=== PATIENT | female | born 1955 | race Caucasian/White ===

== ENCOUNTER → 2016-10-30 | Outpatient (CLI) | payer BC ==
--- OUTSIDE RECORDS SUMMARY | 2016-10-30 09:29 | XMS REPORT ---
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 Name Role Phone NANCY BANEGAS CP Unavailable Allergies No Known Allergies Problems Problem Type Condition Code Onset Dates Condition Status Problem Dysthymia F34.1 Active Assessment Bereavement, uncomplicated Z63.4 Active Problem Hyperlipidemia, unspecified hyperlipidemia type E78.5 Active Problem Morbid obesity due to excess calories E66.01 Active Problem Bereavement, uncomplicated Z63.4 Active Problem Type II diabetes mellitus E11.9 Active Problem Benign essential hypertension I10 Active Problem Allergic rhinitis, unspecified allergic rhinitis type J30.9 Active Problem Elevated liver enzymes R74.8 Active Medications No Known Medications Procedures Procedure Coding System Code Date Psych diagnostic evaluation, established patient CPT-4 85429 Jun 07, 2016 Results No Known Results Summary Purpose eClinicalWorks Submission
--- NOTE | 2016-11-01 20:17 | Diagnostic Imaging Report ---
Bilateral screening mammogram The current study was also evaluated with a Computer Aided Detection (CAD) system. Indication: Screening. No current complaints stated on the questionnaire. COMPARISON: 11/25/13. FINDINGS: The breasts are composed of heterogeneously dense parenchyma which may decrease mammographic sensitivity. There are benign-appearing calcifications seen. Allowing for technique and positional differences, no suspicious change is seen. IMPRESSION: No significant change. ACR BI-RADS Category 2: Benign findings. Result letter will be mailed to the patient. Note: At least 10% of breast cancer is not imaged by mammography. Dictated by: Dictated on workstation # [id number]
== END ==
LOC: RAD 09:25
PROVIDERS: ATTEND Nurse Practitioner Family
DX: Z12.31 Encounter for screening mammogram for malignant neoplasm of breast (principal)
CPT/HCPCS: 77067

== ENCOUNTER → 2019-03-10 | Outpatient (CLI) | payer BC ==
--- NOTE | 2019-03-10 14:04 | Diagnostic Imaging Report ---
INDICATION: Routine screening. COMPARISON: 10/30/2016 and 11/25/2013. TECHNIQUE: 2D and 3D bilateral screening mammography was performed with CAD. FINDINGS: Both breasts remain heterogeneously dense, limiting the sensitivity of mammography. There are benign calcifications in both breasts. No dominant mass or malignant appearing microcalcifications are seen. The axillae are unremarkable. IMPRESSION: No mammographic features suspicious for malignancy are identified. ACR BI-RADS Category 2: Benign findings. Result letter will be mailed to the patient. Note: At least 10% of breast cancer is not imaged by mammography. Dictated by: Dictated on workstation # [id number]
== END ==
LOC: RAD 09:58
PROVIDERS: ATTEND Nurse Practitioner Family
DX: Z12.31 Encounter for screening mammogram for malignant neoplasm of breast (principal)
CPT/HCPCS: 77067

== ENCOUNTER 2019-11-19 11:50 | Outpatient (CLI) | payer BC ==
[~2019-11-19] VITALS: Ht 157.5 cm; Wt 102.3 kg
[2019-11-19] MEDS ORDERED: FAMO20TA5 PO (12:15)
[2019-11-19] MEDS ORDERED: VITA-235 PO (12:15)
[2019-11-19] MEDS ORDERED: LORA10TA7 PO (12:15)
[2019-11-19] MEDS ORDERED: SIMV20TA26 PO (12:15)
[2019-11-19] MEDS ORDERED: ALLO100T PO (12:15)
[2019-11-19] MEDS ORDERED: DULA0.75 SQ (12:15)
[2019-11-19] MEDS ORDERED: METF-478 PO (12:15)
[2019-11-19] MEDS ORDERED: BISO10TA PO (12:15)
== END 2019-11-19 13:59 | disposition home or self-care (01) ==
LOC: PREOP 11:50
PROVIDERS: ATTEND Surgery
DX: Z01.818 Encounter for other preprocedural examination (principal)

== ENCOUNTER → 2021-03-15 | Outpatient (CLI) | payer MEDICARE ==
[~2021-03-15] MED LIST: ALLO100T PO; BISO10TA PO; DULA0.75 SQ; FAMO20TA5 PO; HYDR-4226 PO; LORA10TA7 PO; METF-478 PO; SIMV20TA26 PO; VITA-261 PO
--- NOTE | 2021-03-15 10:03 | Diagnostic Imaging Report ---
INDICATION: Postmenopausal screening COMPARISON: Baseline FINDINGS: AP Spine L1-L4: [BMD (g/cm2): 1.071] [T-Score: -1.1] [Z-Score: -0.7] [BMD Previous: NA] [BMD % Change: NA] LT Hip Neck: [BMD (g/cm2): 1.099] [T-Score: 0.4] [Z-Score: 1.1] LT Hip Total: [BMD (g/cm2):1.291] [T-Score:2.3] [Z-Score: 2.6] [BMD Previous: NA] [BMD % Change: NA] RT Hip Neck: [BMD (g/cm2):1.146] [T-Score:0.8] [Z-Score:1.5] RT Hip Total: [BMD (g/cm2):1.267] [T-score:2.1] [Z-Score:2.4] [BMD Previous:NA] [BMD % Change:NA] *Indicates significant change from prior examination based on 95% confidence level. World Health Organization criteria for BMD interpretation classify patients as Normal (T-score at or above -1.0), Osteopenic (T-score between -1.0 and -2.5) or Osteoporotic (T-score at or below -2.5). LIMITATIONS AND MODIFICATION: None. FRACTURE RISK (FRAX SCORE): The ten year probability of (%): Major Osteoporotic Fracture: [NA] Hip Fracture: [NA] IMPRESSION: 1. Osteopenia (Low bone mass). 2. Baseline examination. 3. See below National Osteoporosis Foundation guidelines on when to potentially initiate pharmacologic therapy. Based on the National Osteoporosis Foundation Guidelines, pharmacologic treatment should be initiated in any of the following, unless clinical conditions suggest otherwise: * Any patient with prior fragility fracture of the hip or vertebrae. A spine fracture indicates 5X risk for subsequent spine fracture and 2X risk for subsequent hip fracture. * Osteoporosis (T-score <-2.5). * Postmenopausal women and men age 50 and older with low bone mass/osteopenia (T-score between -1.0 and -2.5) by DXA and 10-year major osteoporotic fracture greater than 20% or a 10-year probability of hip fracture greater than 3%. These fracture risks are supplied above in the FRAX score, if applicable. * Clinician judgement and/or patient preferences may indicate treatment for people with 10-year fracture probabilities above or below these levels. Dictated by: Dictated on workstation # [id number]
--- NOTE | 2021-03-15 12:23 | Diagnostic Imaging Report ---
INDICATION: Routine screening. COMPARISON: 03/10/2019 and 10/30/2016. TECHNIQUE: 2D and 3D bilateral screening mammography was performed with CAD. FINDINGS: Scattered fibroglandular densities are identified bilaterally. There are scattered benign-appearing calcifications in both breasts. No mass or malignant appearing microcalcifications are seen. The axillae are unremarkable. IMPRESSION: No mammographic features suspicious for malignancy are identified. ACR BI-RADS Category 2: Benign findings. Result letter will be mailed to the patient. Note: At least 10% of breast cancer is not imaged by mammography. Dictated by: Dictated on workstation # [id number]
== END ==
LOC: RAD 09:06
PROVIDERS: ATTEND Nurse Practitioner Family
DX: Z12.31 Encounter for screening mammogram for malignant neoplasm of breast (principal); M85.80 Other specified disorders of bone density and structure, unspecified site; Z78.0 Asymptomatic menopausal state
CPT/HCPCS: 77063; 77067; 77080